=== PATIENT | male | born 1945 | race Caucasian/White ===

== ENCOUNTER 2017-05-10 13:22 | Inpatient (IN) ==
--- NOTE | 2017-05-10 16:37 | Diag Imaging Result Doc PS360 ---
EXAM: MRI BRAIN W W/O CONTRAST HISTORY: lung cancer TECHNIQUE: Axial, sagittal, and coronal images obtained in multiple sequences. These are followed by postcontrast axial and coronal images. COMPARISON: None. FINDINGS: No recent infarct. No microvascular ischemic changes. No mass or midline shift. No enhancing lesion on the post contrasted images. No hydrocephalus. No epidural or subdural fluid collection. No sinus opacification. Minimal mucosal thickening. IMPRESSION: No brain metastases identified. Electronically signed by Gómez Allen 05/10/2017 4:35 PM
--- NOTE | 2017-05-10 17:10 | Diag Imaging Result Doc PS360 ---
EXAM: ABDOMEN/PELVIS W/CONTRAST INDICATION: Evaluation of lung cancer TECHNIQUE: Dose reduction protocol was used. COMPARISON: No prior dedicated CT of the abdomen and pelvis is available for comparison. FINDINGS: The known mass suspicious for neoplasm in the left lung base seen on a CT of the chest performed earlier today is again noted. There is a tiny hypodensity in the anterior right hepatic lobe and one in the inferior left hepatic lobe that do not appear to enhance and probably represent small cysts but are too small to accurately characterize. There is a small hypodensity at the lower pole of the left kidney that probably represents a tiny cyst. There is bilateral perinephric fibrotic change. There is extensive sigmoid colonic diverticulosis but no evidence of diverticulitis. There are prostatic calcifications. Contrast is seen in the urinary bladder even on earlier phases due to the recent chest CT. The remainder of the solid viscera of the abdomen and pelvis and the remainder of the GI tract are essentially unremarkable. There are degenerative changes involving the spine. There is nothing to suggest bony metastatic disease locally. IMPRESSION: 1.A couple miniscule hepatic hypodensities that probably represent tiny cysts but are too small to characterize. 2.No definite sign of metastatic disease to the abdomen and pelvis, otherwise. 3.Other incidental/nonacute findings detailed above. Electronically signed by Federico Toscano 05/10/2017 5:07 PM
[2017-05-10] MEDS: DUONEB (A & A) INH PRN (17:54)
[2017-05-10 18:00] LABS: BASO% 0.1 % (0.0-0.8); HEMATOCRIT 33.2 % (42.0-52.0); HEMOGLOBIN 11.6 g/dL (14.0-18.0); IMM GRAN# 0.04 X1000 (0.0-0.04); IMM GRAN% 0.3 % (0.0-0.5); LYMPH# 0.26 X1000 (1.2-3.4); LYMPH% 1.7 % (20.5-51.1); MANUAL DIFF NEEDED? YES; MCH 33.2 PG (27-31); MCHC 34.9 g/dL (33-37); MCV 95.1 FL (81-99); MONO# 0.12 X1000 (0.11-0.59); MONO% 0.8 % (1.7-9.3); MPV 8.5 FL (7.4-10.4); NEUT% 97.1 % (42.2-75.2); PLT 372 X1000 (130-400); RBC 3.49 XMIL (4.7-6.1)
[2017-05-10 18:02] LABS: HEMOGLOBIN A1C 5.5 % (4.8-6.0)
[2017-05-10 18:04] LABS: LYMPHS 2 % (21-51); MONO 1 % (1-9)
[2017-05-10 18:05] LABS: ALLEN TEST YES; BE -1.9 mmoll (-3.0-3.0); BLOOD TYPE ARTERIAL; DRAW SITE R RADIAL; METHB 1.3 % (0.0-1.5); O2(CT) 16.2 mL/dL (15.0-23.0); PCO2(98.6) 35 mmHg (35-45); PO2(98.6) 75 mmHg (60-100); SAMPLE BLOOD; SAO2 97.6 % (95.0-100.0); THB 12.3 g/dL (11.5-17.4); pH(98.6) 7.41 (7.35-7.45)
[2017-05-10 18:07] LABS: MODALITY ROOM AIR
[2017-05-10 18:15] LABS: AGAP 18; ALBUMIN 3.9 g/dL (3.5-5.0); ALKALINE PHOSPHATASE 85 U/L (32-122); BUN 18 mg/dL (8-22); CALCIUM 9.4 mg/dL (8.8-10.2); CHLORIDE 93 mmol/L (98-107); COSMO 273; GOT 36 U/L (10-34); GPT 25 U/L (10-44); POTASSIUM 3.9 mmol/L (3.5-5.1); SODIUM 134 mmol/L (136-145); TCO2 23 mmol/L (25-35); TOTAL BILIRUBIN 0.39 mg/dL (0.20-1.00); TOTAL PROTEIN 8.4 g/dL (6.3-8.3)
[2017-05-10] MEDS: NS 1,000 ML IV SCH (18:45)
[2017-05-10] MEDS: SOLU-MEDROL IV SCH (18:46)
[2017-05-10] MEDS: LEVAQUIN 500 MG/D5W 500 MG/100 ML IVPB IV SCH (18:46)
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
[2017-05-11] MEDS: SOLU-MEDROL IV SCH ×3 (02:56→18:40)
--- NOTE | 2017-05-11 05:36 | EKG Report ---
Test Performed on : 05/10/2017 5:37:29 PM Test Reason : chest pain Blood Pressure : / mmHG Vent. Rate : 091 BPM Atrial Rate : 091 BPM P-R Int : 144 ms QRS Dur : 072 ms QT Int : 366 ms P-R-T Axes : 066 039 060 degrees QTc Int : 450 ms Sinus rhythm. with premature atrial complexes. Nonspecific T wave abnormality Abnormal ECG No previous ECGs available Confirmed by Alfredo Crump MD ([id number]) on 05/11/2017 1:07:02 PM
[2017-05-11] MEDS: NS 1,000 ML IV SCH ×3 (05:50→18:42)
[2017-05-11 06:42] LABS: INR 1.04; PROTIME 10.9 Seconds (9.2-11.7)
--- NOTE | 2017-05-11 08:43 | PROGRESS NOTE ---
DATE: 05/11/2017 SUBJECTIVE: The patient has a little bit of cough, shortness of breath. No complaints. EXAMINATION: Vital Signs: Vitals are stable. 6 feet, 184 pounds. HEENT: Within normal limits. Chest: Scattered wheezing. Heart: Sounds are regular. Abdomen: Belly is soft, nontender. Good bowel sounds. No masses palpable. Neurologic: No neurological deficits. INVESTIGATIONS: MRI of the brain is negative. CT of the abdomen and pelvis is negative. CEA level is 267. ASSESSMENT AND PLAN: 1. Left lower lobe mass, highly suspicious for malignancy. Waiting for a CT-guided biopsy and Dr. Pack is back up if there are any complications. Based on the biopsy, further recommendations will be followed. 2. Chronic obstructive pulmonary disease. Continue on bronchodilators, IV steroids, IV antibiotics. 3. Hypertension, on lisinopril. 4. Hyperlipidemia, on simvastatin. 5. We will reconcile his home medications. LEVEL OF DOCUMENTATION: Is 25 minutes. cc: Michael Roger MD
--- NOTE | 2017-05-11 10:10 | Diag Imaging Result Doc PS360 ---
EXAM: CHEST-2 VIEWS - 05/11/2017 HISTORY: POST BIOPSY TECHNIQUE: AP inspiratory expiratory chest 9:39-9:40 AM COMPARISON: No comparison chest radiographs are available FINDINGS: Exam performed immediately following the CT directed needle biopsy of the left lower lobe lesion. There is a tiny pneumothorax at the left apex. There is no pleural effusion identified. The lungs appear clear except for the known left lower lobe mass. Heart size is normal. IMPRESSION: Tiny left apical pneumothorax. Results were discussed with Dr. Roger by telephone at approximately 9:50 AM on 05/11/2017. Electronically signed by Jese Manuel 05/11/2017 10:08 AM
[2017-05-11] MEDS: BREO ELLIPTA 100/25 MCG INH INH SCH (10:12)
[2017-05-11] MEDS: SPIRIVA INH SCH (10:12)
--- NOTE | 2017-05-11 10:33 | Diag Imaging Result Doc PS360 ---
EXAM: CT GUIDED BIOPSY LUNG - 05/11/2017 HISTORY: lung mass TECHNIQUE: CT directed needle biopsy of left lung lesion COMPARISON: CT thorax of 05/10/2017 FINDINGS: The patient presented for CT directed needle biopsy of the left lower lobe lung lesion which was seen on the 05/10/2017 CT thorax. The procedure was explained to the patient. Potential benefit of diagnosis of the etiology of the left lower lobe lesion for guiding any needed treatment was explained. Potential complications of hemorrhage, infection, and pneumothorax (possibly necessitating chest tube insertion) were explained. Alternative method of surgical biopsy was mentioned. The patient's questions were answered. The patient consented to the procedure. The patient subsequently was placed on the CT table in the prone position. The left lower lobe lung lesion was identified by CT and the biopsy location was determined. The patient was prepped and draped in the usual fashion and the skin subcutaneous tissues at the biopsy site were infiltrated with local anesthetic. Using intermittent CT guidance, a 19-gauge trocar was inserted to the left lower lobe lesion via posterior approach. A 20-gauge Temno spring loaded biopsy needle was inserted through the trocar and the lesion was biopsied. A total of three biopsy samples obtained. The samples were sent to pathology for evaluation. There is a small pneumothorax visible by CT at the biopsy location. The patient had mild difficulty with holding his breath during the procedure but otherwise tolerated the procedure well. IMPRESSION: Apparently successful CT directed needle biopsy left lower lobe lung lesion. CT images showed a small pneumothorax at the biopsy location. Chest radiographs obtained immediately after the biopsy showed a tiny pneumothorax at the left apex. Electronically signed by Jese Manuel 05/11/2017 10:30 AM
--- NOTE | 2017-05-11 13:51 | Diag Imaging Result Doc PS360 ---
EXAM: CHEST-2 VIEWS - 05/11/2017 HISTORY: post biopsy TECHNIQUE: PA inspiratory expiratory chest 1:34-1:35 PM COMPARISON: Earlier exam of same day FINDINGS: There is a small (5-10%) pneumothorax on the left which is visible on the expiratory image but is difficult to visualize on the inspiratory image. This appears a bit larger compared to previous exam but there is greater detail on this exam compared to the prior exam. There are no other interval changes identified. There is no pleural effusion seen. IMPRESSION: Small left pneumothorax. Electronically signed by Jese Manuel 05/11/2017 1:49 PM
--- NOTE | 2017-05-11 17:48 | Diag Imaging Result Doc PS360 ---
EXAM: CHEST-2 VIEWS - 05/11/2017 HISTORY: post biopsy TECHNIQUE: PA inspiratory expiratory chest 5:29 PM COMPARISON: Earlier exam at 1:34-1:35 PM FINDINGS: There is a small left pneumothorax visible on the expiratory phase image. This appears slightly larger compared to the previous exam. This again is difficult to visualize on the inspiratory phase image. There are no other acute changes identified. IMPRESSION: Small left pneumothorax which appears slightly larger compared to the previous exam. Electronically signed by Jese Manuel 05/11/2017 5:46 PM
[2017-05-11] MEDS: LEVAQUIN 500 MG/D5W 500 MG/100 ML IVPB IV SCH (18:41)
[2017-05-12] MEDS: SOLU-MEDROL IV SCH ×2 (02:51→09:29)
[2017-05-12] MEDS: DUONEB (A & A) INH PRN (03:16)
[2017-05-12 08:10] VITALS: BP 133/67
[2017-05-12] MEDS ORDERED: ROBITUSSIN PO PRN (08:46)
[2017-05-12] MEDS ORDERED: ULTRACET 37.5MG/325MG PO PRN (08:46)
[2017-05-12] MEDS: BREO ELLIPTA 100/25 MCG INH INH SCH (10:42)
[2017-05-12] MEDS: SPIRIVA INH SCH (10:42)
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
--- NOTE | 2017-05-15 04:50 | DISCHARGE SUMMARY ---
ADMISSION DATE: 05/10/2017 DISCHARGE DATE: 05/12/2017 DISCHARGING DIAGNOSIS: Left lung mass, non-small cell lung cancer, presumed to be adenocarcinoma. Staging is in progress. SECONDARY DIAGNOSES: 1. Chronic obstructive pulmonary disease. 2. Chronic back pain. 3. Hemorrhoids. 4. Hyperlipidemia. 5. Hypertension. 6. Tobacco abuse. CONSULTS: Dr. Suero. PROCEDURES: CT-guided lung biopsy of the left lower lobe consistent with non-small cell lung cancer. BRIEF HISTORY: Please see the H and P that was done on 05/10/2017. In brief, he is a 72-year- old, pleasant, , white male admitted to the hospital from our office with cough and shortness of breath. No weight loss. No hemoptysis. The patient was found to have a left lower lobe mass. It appears to be 4-5 cm. HOSPITAL COURSE: He was treated for COPD exacerbation with IV antibiotics, IV steroids, and bronchodilators. CT lung biopsy was done. It showed non-small cell lung cancer. Staging was in progress. Patient was consulted by Dr. Suero. Postbiopsy complicated by a small pneumothorax which is not visible on the chest x-ray. Patient is going to be outpatient PET scan and further workup per Dr. Suero. LABORATORIES: CBC: White cell count 15, hematocrit 33, platelets 372,000. PT 10, INR 1.04. ABG on room air, pH is 7.41, pCO2 35, PO2 is 75, bicarb 23. SMA 7: Sodium 134, potassium 3.9, chloride 93, BUN 18, creatinine 1, glucose 145. A1c 5.5. Liver function tests were normal. CRP is high. CEA level 267. B12 and TSH are normal. RADIOLOGY PROCEDURES: 1. Brain MRI, no evidence of metastatic disease. 2. CT scan of the abdomen and pelvis, tiny cyst. No evidence of metastatic disease noted. DISCHARGE INSTRUCTIONS: 1. Quit smoking. 2. Continue home medicines through the [facility]. Lisinopril 40 mg daily, simvastatin 40 daily, Ultram as needed for pain. 3. Continue on bronchodilators which are Breo and Spiriva. 4. Outpatient PET scan as per Dr. Suero. cc: MD Mushtaq Diallo MD Dr. Walker
== END 2017-05-12 13:51 | disposition home or self-care (01) ==
LOC: DIRADM 13:22 → 3N 14:34
PROVIDERS: ADMIT Internal Medicine; ATTEND Internal Medicine

== ENCOUNTER 2017-07-06 05:10 | Inpatient (IN) ==
[2017-07-04 12:20] LABS: HEMATOCRIT 32.1 % (42.0-52.0); HEMOGLOBIN 10.8 g/dL (14.0-18.0); MCH 31.9 PG (27-31); MCHC 33.6 g/dL (33-37); MCV 94.7 FL (81-99); MPV 8.7 FL (7.4-10.4); RBC 3.39 XMIL (4.7-6.1)
[2017-07-04 12:58] LABS: AGAP 14; BUN 8 mg/dL (8-22); CALCIUM 9.8 mg/dL (8.8-10.2); CHLORIDE 94 mmol/L (98-107); COSMO 271; POTASSIUM 5.3 mmol/L (3.5-5.1); SODIUM 136 mmol/L (136-145); TCO2 28 mmol/L (25-35)
[2017-07-06] MEDS ORDERED: LR 1,000 ML ONE (05:30)
[2017-07-06] MEDS ORDERED: KEFZOL 1 GM/D5W 1 GM/50 ML IVPB ONE (05:31)
[2017-07-06] MEDS ORDERED: DUONEB (A & A) INH ONE (05:45)
[2017-07-06] MEDS ORDERED: SENSORCAINE 0.5%-EPI 1:200,000 ONE (06:26)
[2017-07-06] MEDS ORDERED: FENTANYL ONE (06:26)
[2017-07-06] MEDS ORDERED: DIPRIVAN 1% ONE (06:27)
[2017-07-06] MEDS ORDERED: NORCURON ONE (06:29)
[2017-07-06] MEDS ORDERED: SODIUM CHLORIDE 0.9% 10 ML ONE (06:29)
[2017-07-06] MEDS ORDERED: VERSED ONE ×2 (06:33→06:44)
[2017-07-06 06:41] LABS: AGAP 13; BUN 13 mg/dL (8-22); CALCIUM 9.8 mg/dL (8.8-10.2); CHLORIDE 99 mmol/L (98-107); COSMO 280; POTASSIUM 4.9 mmol/L (3.5-5.1); SODIUM 140 mmol/L (136-145); TCO2 28 mmol/L (25-35)
[2017-07-06] MEDS ORDERED: NAROPIN 0.5% ONE (06:51)
[2017-07-06] MEDS ORDERED: EXPAREL 1.3% ONE (06:51)
[2017-07-06 07:56] LABS: URINE MICRO REVIEW NEEDED? NO; URINE SOURCE CATH
[2017-07-06] MEDS ORDERED: ROBINUL ONE ×2 (08:00→08:32)
[2017-07-06 08:06] LABS: BILIRUBIN URINE NEGATIVE (NEGATIVE); BLOOD URINE SMALL (NEGATIVE); COLOR YELLOW; GLUCOSE URINE NEGATIVE (NEGATIVE); LEUKOCYTES URINE NEGATIVE (NEGATIVE); NITRITE URINE NEGATIVE (NEGATIVE); PROTEIN URINE TRACE mg/dL (NEGATIVE); SP GRAVITY URINE 1.018; TURBIDITY URINE CLEAR (CLEAR); UROBILINOGEN URINE NORMAL (NORMAL)
[2017-07-06 08:07] LABS: UR EPITHELIAL CELLS <10 /HPF (<10); URINE BACTERIA NEGATIVE /HPF; URINE RBC <10 /HPF (<10); URINE WBC <10 /HPF (<10)
[2017-07-06] MEDS ORDERED: ZOFRAN ONE (08:11)
[2017-07-06] MEDS ORDERED: OFIRMEV 1000 MG/ISOTONIC SOLN 1,000 MG/100 ML BOTTLE ONE (08:11)
[2017-07-06] MEDS ORDERED: NEOSTIGMINE ONE (08:32)
[2017-07-06] MEDS: MORPHINE ONE ×3 (09:22→11:48)
[2017-07-06 09:42] LABS: ALLEN TEST NO; BE -0.4 mmoll (-3.0-3.0); BLOOD TYPE ARTERIAL; METHB 1.2 % (0.0-1.5); O2(CT) 13.3 mL/dL (15.0-23.0); PCO2(98.6) 49 mmHg (35-45); PO2(98.6) 88 mmHg (60-100); SAMPLE BLOOD; SAO2 98.6 % (95.0-100.0); THB 9.8 g/dL (11.5-17.4); pH(98.6) 7.33 (7.35-7.45)
[2017-07-06 09:43] LABS: DRAW SITE OTHER; MODALITY CANNULA
[2017-07-06] MEDS ORDERED: NS 1,000 ML ONE (10:00)
[2017-07-06] MEDS ORDERED: MORPHINE ONE (10:04)
[2017-07-06] MEDS ORDERED: ZOFRAN IV PRN (10:42)
--- NOTE | 2017-07-06 11:06 | Diag Imaging Result Doc PS360 ---
EXAM: CHEST-PORTABLE HISTORY: post thoracotomy TECHNIQUE: AP portable at 1050 COMMENT: There are two chest tubes on the left. There is been left thoracotomy. There is no evidence of residual pneumothorax. There is some atelectasis over the costophrenic angle region. The right lung is less well expanded than on 05/11/2017 otherwise has been no significant change. IMPRESSION: Status post the left lower lobe lobectomy. Electronically signed by Natanael Jean 07/06/2017 11:04 AM
[2017-07-06 11:15] LABS: I-STAT BE -2 mmoll (-2-3); I-STAT GLUCOSE 109 mg/dL (70-105); I-STAT HCO3 23.1 mmoll (22.0-26.0); I-STAT HEMATOCRIT 21 % (38-51); I-STAT HEMOGLOBIN 7.1 g/dL (11.5-17.5); I-STAT IONIZED CALCIUM 1.05 mmoll (1.12-1.32); I-STAT K 3.2 mmoll (3.5-4.9); I-STAT PCO2 40.5 mmHg (35.0-45.0); I-STAT SO2 100 % (95-98); I-STAT SODIUM 137 mmoll (138-146); I-STAT TCO2 24 mmoll (23-27); I-STAT pH 7.363 (7.350-7.450)
[2017-07-06] MEDS: DILAUDID IV PRN ×4 (11:45→22:32)
[2017-07-06] MEDS: DUONEB (A & A) INH SCH ×4 (11:46→23:24)
[2017-07-06] MEDS: NS 1,000 ML IV SCH ×2 (11:48→21:15)
[2017-07-06 12:11] LABS: ALLEN TEST NO; BE -0.9 mmoll (-3.0-3.0); BLOOD TYPE ARTERIAL; DRAW SITE OTHER; METHB 1.7 % (0.0-1.5); O2(CT) 13.4 mL/dL (15.0-23.0); PO2(98.6) 103 mmHg (60-100); SAMPLE BLOOD; SAO2 98.8 % (95.0-100.0); THB 9.9 g/dL (11.5-17.4); pH(98.6) 7.31 (7.35-7.45)
[2017-07-06 12:13] LABS: MODALITY CANNULA; PCO2(98.6) 51 mmHg (35-45)
--- NOTE | 2017-07-06 12:35 | OPERATIVE NOTE ---
PROCEDURE DATE: 07/06/2017 PROCEDURES PERFORMED: 1. Bronchoscopy. 2. Left posterolateral thoracotomy. 3. Left lower lobectomy. SURGEON: Michael Pack MD WHEEL PRESSER: Rylie Taylor. PREOPERATIVE DIAGNOSES: 1. Adenocarcinoma of the left lower lobe. 2. Chronic obstructive pulmonary disease. POSTOPERATIVE DIAGNOSES: 1. Adenocarcinoma of the left lower lobe. 2. Chronic obstructive pulmonary disease. DESCRIPTION OF PROCEDURE: Satisfactory single-lumen general endotracheal anesthesia was achieved. The flexible bronchoscope was introduced through the oral endotracheal tube into the trachea. The lino was identified. We looked at the right mainstem. The upper lobe orifice, middle lobe orifice, and lower lobe orifice on the right all appeared normal, except the middle lobe appeared somewhat collapsed. No endobronchial lesions were seen. We then pulled the scope back into the trachea and passed it into the left mainstem. The orifice to the upper lobe and lower lobes appeared normal. No endobronchial lesions were seen. There really was not much mucus identified. We removed the flexible bronchoscope. The patient was then exchanged for a single-lumen to a double lumen tube and it was secured in position. We then turned the patient into the decubitus position with the left side up, and he was secured there. The left side was then prepped and draped in a sterile fashion. We marked the skin 2 fingerbreadths below the tip of the scapula and then incised the skin as the posterolateral thoracotomy incision. We then used electrocautery to achieve satisfactory hemostasis. We then divided the latissimus dorsi muscle and then the serratus anterior muscle and a portion the rhomboids posteriorly. We identified the 6th rib and then asked the nurse telephone lineman to clamp off the lumen to the left side. We then divided the intercostal muscles between the 6th and 7th ribs until we entered the pleural space. We opened the pleural space to the extent of the skin incision. We then dissected the soft tissue from below the 6th rib in order to preserve the intercostal nerves. We then gently placed a rib fire protection specialist and gently the ribs. We were right at the level of the fissure. There were some adhesions to the left upper lobe, which we carefully divided, thereby freeing up both the left upper and lower lobes. We divided the inferior pulmonary ligament. We then began dividing the fissure in the mid aspect and exposed the pulmonary artery as it entered the lower lobe. We identified the basilar artery. We identified the arteries to the superior dorsal segment. We carefully dissected them and then ligated them with 2-0 silks proximally x2, distally x1, and divided each 1 of them so that the arterial supply to the lower lobe was completely divided. We then incised the pleura posteriorly to the level of the major fissure and then I was able to pass a AQUILES-80 green linear stapler to complete the major fissure posterior to the arteries. The fissure anteriorly was complete, so we did not have to divide any tissue anterior. We then reflected the lung anteriorly to expose the inferior pulmonary vein. We dissected it. We surrounded it with a right angle. I then was able to pass a TA-30 vascular stapler around the inferior pulmonary vein and stapled it off proximally. We ligated it distally with a 2-0 silk and then divided the vein. This then left us with the bronchus to the lower lobe and the major fissure. We cleaned it off. We left the lymph nodes attached to the lower lobe and, after we had exposed the bronchus circumferentially, we then passed a TA-30 stapler green cartridge. We then clamped off that bronchus. We then inflated the left upper lobe and it inflated nicely. We did use Progel along the staple line of the fissure to help stop any air leak that was identified in the parenchyma. We then stapled off the lower lobe bronchus, divided it, and handed off the lower lobe. We tested the bronchial closure at 40 mmHg and there was no leak from the bronchial stump. We left the left upper lobe inflated. We then placed two #32 chest tubes, one anteriorly and one posteriorly. The posterior tube we cut an extra hole in at the 12 cm megha in order to help drain the inferior aspect of the chest cavity better. We secured these at the skin level with 0 silks. We then cleaned off the rib with the periosteum elevator at 3 [address] along the course of the 6th and the 7th ribs. We drilled holes in the rib and passed 2-0 Ti-Cron sutures through the rib. I then injected with ropivacaine and Exparel combination. We had a total of 50 mL. I injected below the 6th rib and below the 7th rib as well to help provide relief of pain along the course of the intercostal nerves. We then reapproximated the ribs with a rib reapproximator and tied the Ti-Cron stitches to hold the ribs together. We then used the rest of the Exparel in the subcutaneous tissue along the course of the muscle. Total use of the Exparel and ropivacaine combination was 50 mL. We then closed the serratus anterior muscle with #1 Polysorb. We closed the rhomboids with 1 Polysorb. We closed the latissimus dorsally with 1 Polysorb. We then closed the subcutaneous tissue with 0 Polysorb. The skin was reapproximated with jim. A sterile dressing was applied. He tolerated it well. Estimated blood loss was 125 mL. He was sent to the recovery room in satisfactory condition. cc: MD Wilda Neville MD
[2017-07-06] MEDS: CARDIZEM PO SCH ×2 (13:01→17:00)
[2017-07-06] MEDS: OFIRMEV 1000 MG/ISOTONIC SOLN 1,000 MG/100 ML BOTTLE IV SCH ×2 (13:01→20:24)
[2017-07-06] MEDS: ZOCOR PO SCH (20:24)
[2017-07-06] MEDS: PERIDEX MT SCH (20:25)
[2017-07-06] MEDS: ULTRAM PO PRN (22:31)
[2017-07-06] MEDS ORDERED: BLISTEX MEDICATED BERRY LIP BALM TOP PRN (22:37)
[2017-07-07] MEDS: OFIRMEV 1000 MG/ISOTONIC SOLN 1,000 MG/100 ML BOTTLE IV SCH ×4 (01:51→20:33)
[2017-07-07] MEDS: DILAUDID IV PRN ×3 (01:51→20:31)
[2017-07-07] MEDS: DUONEB (A & A) INH SCH ×5 (03:12→23:13)
[2017-07-07] MEDS ORDERED: NS 500 ML IV ONE (04:47)
[2017-07-07] MEDS: NS 1,000 ML IV SCH ×2 (05:26→06:32)
[2017-07-07 06:38] LABS: BASO% 0.1 % (0.0-0.8); HEMATOCRIT 32.8 % (42.0-52.0); HEMOGLOBIN 10.4 g/dL (14.0-18.0); LYMPH# 0.38 X1000 (1.2-3.4); MANUAL DIFF NEEDED? NO; MCH 32.6 PG (27-31); MCHC 31.7 g/dL (33-37); MCV 102.8 FL (81-99); MONO# 1.17 X1000 (0.11-0.59); MONO% 6.2 % (1.7-9.3); MPV 8.3 FL (7.4-10.4); NEUT% 91.7 % (42.2-75.2); PLT 386 X1000 (130-400); RBC 3.19 XMIL (4.7-6.1)
[2017-07-07 07:14] LABS: CALCIUM 8.2 mg/dL (8.8-10.2); POTASSIUM 4.7 mmol/L (3.5-5.1)
[2017-07-07] MEDS ORDERED: NS 1,000 ML IV SCH (08:30)
--- NOTE | 2017-07-07 08:54 | Diag Imaging Result Doc PS360 ---
EXAM: CHEST-PORTABLE - 07/07/2017 HISTORY: post thoracotomy TECHNIQUE: Portable chest 0840 COMPARISON: 07/06/2017 FINDINGS: There are postsurgical changes with two chest tubes on the left similar to the previous exam. There is increased atelectasis at the left base compared to previous exam. There is mild subsegmental atelectasis at the right base. There is no other consolidation, pleural effusion, or pneumothorax identified. There is stable cardiomegaly. There is apparent gaseous distention of stomach noted at the upper abdomen. IMPRESSION: Postsurgical changes on the left. Increased atelectasis at left base compared to prior. Apparent gaseous distention of stomach noted. Electronically signed by Jese Manuel 07/07/2017 8:52 AM
[2017-07-07] MEDS: CARDIZEM PO SCH ×3 (09:21→16:12)
[2017-07-07] MEDS: PRINIVIL PO SCH (09:21)
[2017-07-07] MEDS: PERIDEX MT SCH ×2 (09:21→20:33)
[2017-07-07] MEDS: ZOCOR PO SCH (20:33)
[2017-07-08] MEDS: OFIRMEV 1000 MG/ISOTONIC SOLN 1,000 MG/100 ML BOTTLE IV SCH ×4 (02:45→21:00)
[2017-07-08] MEDS: DUONEB (A & A) INH SCH ×7 (03:33→22:58)
[2017-07-08 04:25] LABS: ALLEN TEST YES; BE -1.2 mmoll (-3.0-3.0); BLOOD TYPE ARTERIAL; DRAW SITE R RADIAL; METHB 1.2 % (0.0-1.5); O2(CT) 13.5 mL/dL (15.0-23.0); PCO2(98.6) 49 mmHg (35-45); PO2(98.6) 74 mmHg (60-100); SAMPLE BLOOD; SAO2 97.5 % (95.0-100.0); THB 10.1 g/dL (11.5-17.4); pH(98.6) 7.32 (7.35-7.45)
[2017-07-08 04:26] LABS: MODALITY CANNULA
[2017-07-08] MEDS: DILAUDID IV PRN ×3 (05:58→18:13)
[2017-07-08 07:04] LABS: POTASSIUM 4.2 mmol/L (3.5-5.1)
[2017-07-08 07:10] LABS: BASO% 0.1 % (0.0-0.8); HEMATOCRIT 29.2 % (42.0-52.0); HEMOGLOBIN 9.8 g/dL (14.0-18.0); IMM GRAN# 0.05 X1000 (0.0-0.04); IMM GRAN% 0.3 % (0.0-0.5); LYMPH# 0.68 X1000 (1.2-3.4); LYMPH% 3.5 % (20.5-51.1); MANUAL DIFF NEEDED? NO; MCH 32.7 PG (27-31); MCHC 33.6 g/dL (33-37); MCV 97.3 FL (81-99); MONO# 1.25 X1000 (0.11-0.59); MONO% 6.5 % (1.7-9.3); NEUT% 89.6 % (42.2-75.2); PLT 422 X1000 (130-400)
[2017-07-08] MEDS ORDERED: LASIX ONE (08:10)
[2017-07-08] MEDS ORDERED: LASIX IV ONE (08:14)
[2017-07-08] MEDS ORDERED: DULCOLAX PR ONE (08:15)
[2017-07-08] MEDS ORDERED: BREO ELLIPTA 200/25 MCG INH INH ONE (08:48)
[2017-07-08] MEDS ORDERED: VENTOLIN HFA INH PRN (08:48)
[2017-07-08] MEDS ORDERED: MIRALAX PO ONE (08:52)
--- NOTE | 2017-07-08 09:08 | Diag Imaging Result Doc PS360 ---
CHEST-PORTABLE - 07/08/2017 INDICATION: post thoracotomy TECHNIQUE: COMPARISON: 07/07/2017 FINDINGS: Stable double left chest tubes. No pneumothorax. Stable severe cardiomegaly. There is worsening pulmonary vascular congestion. No overt infiltrates or edema. IMPRESSION: Worsening pulmonary vascular congestion. Otherwise no change from prior. Electronically signed by Suresh Quigley 07/08/2017 9:06 AM
--- NOTE | 2017-07-08 09:14 | Diag Imaging Result Doc PS360 ---
KUB ABDOMEN - 07/08/2017 INDICATION: distention TECHNIQUE: COMPARISON: Chest x-ray from 07/07/2017 FINDINGS: There is severe gaseous distention of the stomach that appears stable from prior. There is a relatively large amount of gas throughout the small and large bowels uniformly. No definite free air. IMPRESSION: Stomach is severely distended with gas. The reason is unclear. This may represent gastric ileus. Electronically signed by Suresh Quigley 07/08/2017 9:11 AM
[2017-07-08] MEDS: SPIRIVA INH SCH (09:18)
[2017-07-08] MEDS: SOLU-MEDROL IV SCH ×2 (09:47→16:10)
[2017-07-08] MEDS: PRINIVIL PO SCH (09:48)
[2017-07-08] MEDS: PERIDEX MT SCH ×2 (09:48→21:01)
[2017-07-08] MEDS: PROTONIX IV SCH (09:48)
[2017-07-08] MEDS: LEVAQUIN 500 MG/D5W 500 MG/100 ML IVPB IV SCH (09:48)
[2017-07-08] MEDS: SODIUM CHLORIDE 0.9% INJ SCH (09:48)
[2017-07-08] MEDS: CARDIZEM PO SCH ×3 (09:48→16:07)
[2017-07-08] MEDS: CLINIMIX E 4.25%-5% SOLUTION 1,000 ML IV SCH (12:35)
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
[2017-07-08] MEDS: ZOCOR PO SCH (21:00)
[2017-07-09] MEDS: SOLU-MEDROL IV SCH ×3 (01:30→21:07)
[2017-07-09] MEDS: OFIRMEV 1000 MG/ISOTONIC SOLN 1,000 MG/100 ML BOTTLE IV SCH ×2 (01:31→08:21)
[2017-07-09] MEDS: CLINIMIX E 4.25%-5% SOLUTION 1,000 ML IV SCH ×2 (01:31→15:07)
[2017-07-09] MEDS: DUONEB (A & A) INH SCH ×6 (03:18→23:11)
[2017-07-09] MEDS: DILAUDID IV PRN ×4 (04:12→21:10)
[2017-07-09 04:38] LABS: ALLEN TEST YES; BE 3.3 mmoll (-3.0-3.0); BLOOD TYPE ARTERIAL; DRAW SITE R RADIAL; O2(CT) 12.7 mL/dL (15.0-23.0); PCO2(98.6) 49 mmHg (35-45); PO2(98.6) 106 mmHg (60-100); SAMPLE BLOOD; SAO2 99.2 % (95.0-100.0); THB 9.2 g/dL (11.5-17.4); pH(98.6) 7.38 (7.35-7.45)
[2017-07-09 04:39] LABS: MODALITY CANNULA
[2017-07-09 06:30] LABS: HEMATOCRIT 28.9 % (42.0-52.0); HEMOGLOBIN 9.4 g/dL (14.0-18.0); IMM GRAN# 0.02 X1000 (0.0-0.04); IMM GRAN% 0.1 % (0.0-0.5); LYMPH# 0.28 X1000 (1.2-3.4); LYMPH% 1.6 % (20.5-51.1); MANUAL DIFF NEEDED? NO; MCH 31.5 PG (27-31); MCHC 32.5 g/dL (33-37); MONO% 2.9 % (1.7-9.3); MPV 8.9 FL (7.4-10.4); NEUT% 95.4 % (42.2-75.2); PLT 428 X1000 (130-400); RBC 2.98 XMIL (4.7-6.1)
[2017-07-09 06:40] LABS: INR 0.96; PROTIME 10.1 Seconds (9.2-11.7)
[2017-07-09 06:48] LABS: AGAP 13; ALBUMIN 3.3 g/dL (3.5-5.0); ALKALINE PHOSPHATASE 64 U/L (32-122); BUN 24 mg/dL (8-22); CALCIUM 8.5 mg/dL (8.8-10.2); CHLORIDE 93 mmol/L (98-107); COSMO 275; GOT 55 U/L (10-34); GPT 18 U/L (10-44); MAGNESIUM 1.9 mg/dL (1.5-2.7); POTASSIUM 4.4 mmol/L (3.5-5.1); SODIUM 134 mmol/L (136-145); TCO2 28 mmol/L (25-35); TOTAL BILIRUBIN 0.21 mg/dL (0.20-1.00); TOTAL PROTEIN 6.8 g/dL (6.3-8.3)
[2017-07-09] MEDS: BREO ELLIPTA 200/25 MCG INH INH SCH (08:02)
[2017-07-09] MEDS: SPIRIVA INH SCH (08:02)
--- NOTE | 2017-07-09 08:54 | Diag Imaging Result Doc PS360 ---
CHEST-PORTABLE - 07/09/2017 INDICATION: post thoracotomy TECHNIQUE: COMPARISON: 07/08/2017 FINDINGS: The uppermost left-sided chest tube has been removed. The other chest tube remains in stable position. No pneumothorax. There is a new nasogastric tube in good position. There is some plate like atelectasis in the right lung base but otherwise no infiltrates. Stable diffuse pulmonary vascular congestion. Stable mild cardiomegaly. IMPRESSION: New nasogastric tube. Increasing platelike atelectasis in the right lung base. No pneumothorax. Electronically signed by Suresh Quigley 07/09/2017 8:52 AM
[2017-07-09] MEDS: LEVAQUIN 500 MG/D5W 500 MG/100 ML IVPB IV SCH (09:05)
[2017-07-09] MEDS: PERIDEX MT SCH ×2 (09:05→21:08)
[2017-07-09] MEDS: PROTONIX IV SCH ×2 (09:05→21:08)
[2017-07-09] MEDS: SODIUM CHLORIDE 0.9% INJ SCH ×2 (09:05→21:08)
[2017-07-09] MEDS: CARDIZEM PO SCH ×3 (09:06→17:24)
[2017-07-09] MEDS: PRINIVIL PO SCH (09:06)
[2017-07-09] MEDS ORDERED: VASOTEC IV PRN (13:31)
--- NOTE | 2017-07-09 17:54 | PROGRESS NOTE ---
DATE: 07/09/2017 SUBJECTIVE: The patient is status post left lower lobe pneumonectomy for stage II lung cancer,and he has had COPD. He is feeling a little bit better, still short of breath, but feeling better than he did. Blood pressure is elevated and we will give him some IV enalapril on a p.r.n. basis for that. He still has an NG tube in at this point. OBJECTIVE: Vital Signs: Blood pressure 173/68. I just saw another blood pressure of 190/104, pulse on 109, respirations 18, temperature 98.2 degrees Fahrenheit. HEENT: Normocephalic. EOMS intact, PERRLA. Throat clear. Lungs: Scattered rales, decreased or dull in the left base where he has had his surgery. Heart: Regular rate and rhythm, without murmurs, gallops, or friction rubs. There is a sinus tachycardia. Abdomen: Soft. Active bowel sounds. There is some question about a gastric ileus. He is a little distended. Neurological: Intact grossly. ASSESSMENT: 1. Lung cancer. 2. Status post a left lower lobe pneumonectomy. 3. Hypertension. 4. Possible gastric ileus. PLAN: Continue support. cc: MD Michael Vincent Jr, MD
[2017-07-09] MEDS ORDERED: LASIX IV ONE (20:00)
[2017-07-09] MEDS: ZOCOR PO SCH (21:15)
[2017-07-10] MEDS: DUONEB (A & A) INH SCH ×6 (03:22→22:42)
[2017-07-10] MEDS: DILAUDID IV PRN ×2 (03:30→20:13)
[2017-07-10] MEDS: CLINIMIX E 4.25%-5% SOLUTION 1,000 ML IV SCH ×2 (03:30→17:15)
[2017-07-10 04:38] LABS: HEMATOCRIT 28.9 % (42.0-52.0); HEMOGLOBIN 9.4 g/dL (14.0-18.0); IMM GRAN# 0.04 X1000 (0.0-0.04); IMM GRAN% 0.2 % (0.0-0.5); LYMPH% 1.8 % (20.5-51.1); MANUAL DIFF NEEDED? YES; MCH 31.5 PG (27-31); MCHC 32.5 g/dL (33-37); MONO% 4.7 % (1.7-9.3); MPV 8.5 FL (7.4-10.4); NEUT% 93.3 % (42.2-75.2); PLT 417 X1000 (130-400); RBC 2.98 XMIL (4.7-6.1)
[2017-07-10 04:43] LABS: INR 0.96
[2017-07-10 05:00] LABS: AGAP 11; ALBUMIN 3.4 g/dL (3.5-5.0); ALKALINE PHOSPHATASE 56 U/L (32-122); BUN 25 mg/dL (8-22); CALCIUM 9.7 mg/dL (8.8-10.2); CHLORIDE 93 mmol/L (98-107); COSMO 275; GOT 51 U/L (10-34); GPT 21 U/L (10-44); MAGNESIUM 1.9 mg/dL (1.5-2.7); POTASSIUM 4.5 mmol/L (3.5-5.1); SODIUM 134 mmol/L (136-145); TCO2 30 mmol/L (25-35); TOTAL BILIRUBIN 0.21 mg/dL (0.20-1.00); TOTAL PROTEIN 6.7 g/dL (6.3-8.3)
--- NOTE | 2017-07-10 07:08 | Diag Imaging Result Doc PS360 ---
EXAM: CHEST-PORTABLE HISTORY: abnormal exam TECHNIQUE: AP portable at 0500 COMMENT: There continues to be ill-defined opacity in both lung bases. Left hemidiaphragm remains elevated. Overall, compared to 07/09/2017 there has been no significant change. IMPRESSION: Atelectasis plus minus pneumonia, stable. Electronically signed by Natanael Jean 07/10/2017 7:06 AM
--- NOTE | 2017-07-10 07:09 | Diag Imaging Result Doc PS360 ---
EXAM: KUB ABDOMEN HISTORY: ileus TECHNIQUE: Portable KUB at 0500 COMMENT: There is gas throughout the colon. The stomach and small bowel are not distended. There is some motion artifact. Compared to 07/08/2017 the gas distending the stomach and small bowel have diminished. IMPRESSION: Possibility of mild residual ileus cannot be excluded. No evidence of obstruction. Electronically signed by Natanael Jean 07/10/2017 7:07 AM
[2017-07-10 07:18] LABS: BANDS 2 % (0-1); LYMPHS 2 % (21-51); MONO 2 % (1-9)
[2017-07-10] MEDS: SPIRIVA INH SCH (08:06)
[2017-07-10] MEDS: BREO ELLIPTA 200/25 MCG INH INH SCH (08:06)
[2017-07-10] MEDS: PERIDEX MT SCH ×2 (08:51→20:03)
[2017-07-10] MEDS: PRINIVIL PO SCH (08:51)
[2017-07-10] MEDS: CARDIZEM PO SCH ×2 (08:51→12:58)
[2017-07-10] MEDS: LEVAQUIN 500 MG/D5W 500 MG/100 ML IVPB IV SCH (08:51)
[2017-07-10] MEDS: PROTONIX IV SCH ×2 (08:51→20:04)
[2017-07-10] MEDS: SOLU-MEDROL IV SCH ×2 (08:51→20:04)
[2017-07-10] MEDS: SODIUM CHLORIDE 0.9% INJ SCH (08:51)
[2017-07-10] MEDS: LASIX IV SCH ×2 (09:44→20:04)
[2017-07-10] MEDS: ULTRAM PO PRN ×2 (13:00→20:13)
[2017-07-10] MEDS: CARDIZEM 100 MG/NS 100 MG/100 ML IVPB IV SCH ×2 (14:14→18:19)
--- NOTE | 2017-07-10 16:06 | EKG Report ---
Test Performed on : 07/10/2017 1:58:46 PM Test Reason : CCU 12. Not ordered in [place] Blood Pressure : / mmHG Vent. Rate : 158 BPM Atrial Rate : 133 BPM P-R Int : 000 ms QRS Dur : 070 ms QT Int : 294 ms P-R-T Axes : 000 195 003 degrees QTc Int : 476 ms Atrial fibrillation. with rapid ventricular response. Right superior axis deviation Inferior infarct , age undetermined ST \T\ T wave abnormality, consider anterolateral ischemia Abnormal ECG When compared with ECG of May 10, 2017- Atrial fibrillation. has replaced Sinus rhythm. ST and T wave abnormalities in the anterolateral leads are new Criteria for inferior infarct is new. Confirmed by Niall Ocasio MD ([id number]) on 07/10/2017 8:25:37 PM
[2017-07-10] MEDS ORDERED: LANOXIN IV ONE (18:02)
--- NOTE | 2017-07-10 18:31 | PROGRESS NOTE ---
DATE: 07/10/2017 SUBJECTIVE: Interval history was reviewed. The patient developed ileus, right lower lobe pneumonia postoperatively. Chest tubes were removed. The patient is feeling better. I have seen him twice today. REVIEW OF SYSTEMS: None reported. PHYSICAL EXAMINATION: Vital Signs: Afebrile. tachycardic. Vitals are stable. HEENT Examination: Within normal limits. Chest: Decreased breath sounds in the right base. Heart: Sounds are regular. Abdomen: Belly is soft, less distended and passing flatus. Extremities: No peripheral edema or cyanosis. Neurologic: No obvious neurological deficits. INVESTIGATIONS: CBC: White cell count 16, hematocrit 28.9, platelets 417,000, PT 10, INR 0.96. SMA 7, sodium 134, potassium 4.5, chloride 93, BUN 25, creatinine 0.9, glucose 136, magnesium 1.9. LFTs were normal. ASSESSMENT AND PLAN: 1. Ileus resolving. Discontinue NG tube. We will start with clear liquids. 2. Status post left lower lobe lobectomy, 6.6 cm mass, margins were negative, negative lymph nodes. 3. Right lower lobe atelectasis, pneumonia. Continue IV antibiotics and incentive spirometry. Out of bed. On IV Levaquin. 4. Atrial fibrillation. Change Cardizem to IV Cardizem drip. We will check thyroid function tests and rule out NV with serial cardiac enzymes. 5. Nutrition through IV PPN. 6. DVT prophylaxis with subcutaneous Lovenox and GI prophylaxis with IV Protonix. LEVEL OF DOCUMENTATION: 35 minutes. cc: MD Michael Diallo MD MTDD
[2017-07-10] MEDS: ZOCOR PO SCH (20:05)
[2017-07-11] MEDS: CARDIZEM 100 MG/NS 100 MG/100 ML IVPB IV SCH (01:06)
[2017-07-11] MEDS: DILAUDID IV PRN ×3 (01:10→21:21)
[2017-07-11] MEDS: DUONEB (A & A) INH SCH ×5 (04:04→19:41)
[2017-07-11 04:44] LABS: ALLEN TEST YES; BE 13.5 mmoll (-3.0-3.0); BLOOD TYPE ARTERIAL; DRAW SITE R RADIAL; METHB 0.7 % (0.0-1.5); O2(CT) 12.8 mL/dL (15.0-23.0); PO2(98.6) 63 mmHg (60-100); SAMPLE BLOOD; SAO2 95.9 % (95.0-100.0); THB 9.7 g/dL (11.5-17.4); pH(98.6) 7.46 (7.35-7.45)
[2017-07-11 04:45] LABS: MODALITY CANNULA; PCO2(98.6) 55 mmHg (35-45)
[2017-07-11 05:45] LABS: INR 0.96
[2017-07-11 06:01] LABS: EOS# 0.02 X1000 (0.0-0.7); EOS% 0.2 % (0.0-10.0); HEMATOCRIT 27.2 % (42.0-52.0); HEMOGLOBIN 9.1 g/dL (14.0-18.0); IMM GRAN# 0.02 X1000 (0.0-0.04); IMM GRAN% 0.2 % (0.0-0.5); LYMPH# 0.35 X1000 (1.2-3.4); MANUAL DIFF NEEDED? YES; MCHC 33.5 g/dL (33-37); MCV 95.8 FL (81-99); MONO# 0.77 X1000 (0.11-0.59); MONO% 6.7 % (1.7-9.3); MPV 8.5 FL (7.4-10.4); NEUT% 89.9 % (42.2-75.2); PLT 410 X1000 (130-400); RBC 2.84 XMIL (4.7-6.1)
[2017-07-11 06:03] LABS: AGAP 10; BUN 27 mg/dL (8-22); CALCIUM 9.4 mg/dL (8.8-10.2); CHLORIDE 91 mmol/L (98-107); COSMO 274; MAGNESIUM 1.9 mg/dL (1.5-2.7); POTASSIUM 4.5 mmol/L (3.5-5.1); SODIUM 133 mmol/L (136-145); TCO2 32 mmol/L (25-35)
[2017-07-11 06:18] LABS: FREE T4 1.3 ng/dL (0.93-1.70)
[2017-07-11 06:28] LABS: CK INDEX 1.2 (0.0-2.5); CK-MB 5.41 ng/mL (0.0-5.0)
[2017-07-11] MEDS: CLINIMIX E 4.25%-5% SOLUTION 1,000 ML IV SCH ×2 (06:38→20:19)
[2017-07-11 06:57] LABS: LYMPHS 1 % (21-51); MONO 1 % (1-9)
--- NOTE | 2017-07-11 07:42 | Diag Imaging Result Doc PS360 ---
EXAM: CHEST-PORTABLE HISTORY: abnormal exam TECHNIQUE: AP portable at 0500 COMMENT: There has been some slight improvement in the basilar opacities particularly on the right compared to 07/10/2017. There is still soft tissue emphysema on the left which is actually somewhat increased towards the axilla in comparison with the previous study. This may indicate a persistent air leak. There is no definite evidence of pneumothorax however. The NG tube has been removed. IMPRESSION: Improved bibasilar atelectasis versus pneumonia. Persistent left soft tissue emphysema. Electronically signed by Natanael Jean 07/11/2017 7:40 AM
[2017-07-11] MEDS: SPIRIVA INH SCH (08:03)
[2017-07-11] MEDS: BREO ELLIPTA 200/25 MCG INH INH SCH (08:03)
[2017-07-11] MEDS: PROTONIX IV SCH ×2 (08:35→20:19)
[2017-07-11] MEDS: SOLU-MEDROL IV SCH ×2 (08:35→20:19)
[2017-07-11] MEDS: PERIDEX MT SCH ×2 (08:35→20:20)
[2017-07-11] MEDS: SODIUM CHLORIDE 0.9% INJ SCH (08:35)
[2017-07-11] MEDS: CARDIZEM PO SCH ×2 (08:36→16:59)
[2017-07-11] MEDS: PRINIVIL PO SCH (08:36)
[2017-07-11] MEDS: LEVAQUIN 500 MG/D5W 500 MG/100 ML IVPB IV SCH (08:36)
[2017-07-11] MEDS ORDERED: LANOXIN IV SCH (09:00)
[2017-07-11] MEDS: ULTRAM PO PRN (09:41)
[2017-07-11] MEDS ORDERED: LASIX IV ONE (17:59)
--- NOTE | 2017-07-11 18:25 | PROGRESS NOTE ---
DATE: 07/11/2017 SUBJECTIVE: Patient is still in ICU, remains in sinus, no shortness of breath, history of flatus. OBJECTIVE: Vital Signs: Afebrile, vital signs are stable, 5 L nasal cannula 94%. In and out +690. Chest: Scattered wheezing. Abdomen: Belly is soft, nontender, good bowel sounds. Heart: Distant heart sounds. Extremities: No peripheral edema or cyanosis. Neurologic: No obvious neurological deficits. INVESTIGATIONS: CBC: White cell count 11, hematocrit 27, platelets 410,000. PT/INR is normal. ABG: pH is 7.46, pCO2 55, PO2 63 on 40%. SMA 7 is normal. Cardiac enzymes are negative. ProBNP 620. Thyroid function tests were normal. Chest X-ray: Slightly improving atelectasis in the right base. ASSESSMENT AND PLAN: 1. Postop day 4 status post left lobectomy, right lower lobe atelectasis and pneumonia. Off chest tube. Continue incentive spirometry, bronchodilators, IV antibiotics, low dose steroids. 2. Ileus resolving off NG tube. Advance diet as tolerated. 3. Discontinue Chin catheter. 4. Continue on IV PPN. 5. Paroxysmal atrial fibrillation. DC the Cardizem drip, change to p.o. Cardizem. 6. Reconcile home medications. LEVEL OF DOCUMENTATION: 25 minutes. cc: MD Michael Diallo MD
[2017-07-11] MEDS: NORCO-10 PO PRN (19:21)
[2017-07-11] MEDS: ZOCOR PO SCH (20:19)
[2017-07-12] MEDS: DUONEB (A & A) INH SCH ×7 (00:41→23:10)
[2017-07-12] MEDS: CARDIZEM PO SCH ×3 (00:48→16:07)
[2017-07-12] MEDS: DILAUDID IV PRN ×4 (00:51→18:10)
[2017-07-12 06:18] LABS: INR 0.97; PROTIME 10.2 Seconds (9.2-11.7)
[2017-07-12 06:24] LABS: BASO% 0.1 % (0.0-0.8); HEMATOCRIT 30.5 % (42.0-52.0); IMM GRAN# 0.14 X1000 (0.0-0.04); IMM GRAN% 1.1 % (0.0-0.5); LYMPH# 0.41 X1000 (1.2-3.4); LYMPH% 3.2 % (20.5-51.1); MANUAL DIFF NEEDED? YES; MCH 31.3 PG (27-31); MCHC 32.8 g/dL (33-37); MCV 95.6 FL (81-99); MONO% 8.7 % (1.7-9.3); MPV 8.6 FL (7.4-10.4); NEUT% 86.9 % (42.2-75.2); PLT 432 X1000 (130-400); RBC 3.19 XMIL (4.7-6.1)
[2017-07-12 06:53] LABS: AGAP 9; ALBUMIN 3.8 g/dL (3.5-5.0); ALKALINE PHOSPHATASE 52 U/L (32-122); BUN 28 mg/dL (8-22); CALCIUM 9.2 mg/dL (8.8-10.2); CHLORIDE 89 mmol/L (98-107); COSMO 278; GOT 40 U/L (10-34); GPT 25 U/L (10-44); MAGNESIUM 2.1 mg/dL (1.5-2.7); POTASSIUM 4.7 mmol/L (3.5-5.1); SODIUM 135 mmol/L (136-145); TCO2 37 mmol/L (25-35); TOTAL BILIRUBIN 0.27 mg/dL (0.20-1.00); TOTAL PROTEIN 7.2 g/dL (6.3-8.3)
[2017-07-12 07:05] LABS: BANDS 2 % (0-1); LYMPHS 8 % (21-51); MONO 12 % (1-9)
--- NOTE | 2017-07-12 07:31 | Diag Imaging Result Doc PS360 ---
CHEST-PORTABLE - 07/12/2017 INDICATION: abnormal exam TECHNIQUE: COMPARISON: 07/11/2017 FINDINGS: Stable volume loss of the left lung with infiltrate at the bases. Stable patchy alveolar infiltrate at the right lung base as well. Heart size is normal. Pulmonary vascularity is normal. No pneumothorax. There is continued decrease in soft tissue gas at the inferior left lateral chest wall. IMPRESSION: No complication. Electronically signed by Suresh Quigley 07/12/2017 7:29 AM
[2017-07-12] MEDS: SPIRIVA INH SCH (07:36)
[2017-07-12] MEDS: BREO ELLIPTA 200/25 MCG INH INH SCH (07:36)
[2017-07-12] MEDS: SOLU-MEDROL IV SCH ×2 (09:02→22:29)
[2017-07-12] MEDS: SODIUM CHLORIDE 0.9% INJ SCH ×2 (09:02→22:29)
[2017-07-12] MEDS: PROTONIX IV SCH ×2 (09:02→22:29)
[2017-07-12] MEDS: PERIDEX MT SCH ×2 (09:02→22:35)
[2017-07-12] MEDS: LEVAQUIN 500 MG/D5W 500 MG/100 ML IVPB IV SCH (09:03)
[2017-07-12] MEDS: CLINIMIX E 4.25%-5% SOLUTION 1,000 ML IV SCH (09:03)
[2017-07-12] MEDS: PRINIVIL PO SCH (09:03)
[2017-07-12] MEDS: NORCO-10 PO PRN ×2 (10:22→16:03)
[2017-07-12] MEDS: LOVENOX SUBQ SCH (13:15)
[2017-07-12] MEDS: ZOCOR PO SCH (22:29)
[2017-07-13] MEDS: CLINIMIX E 4.25%-5% SOLUTION 1,000 ML IV SCH ×2 (00:20→11:49)
[2017-07-13] MEDS: NORCO-10 PO PRN ×2 (00:47→06:52)
[2017-07-13] MEDS: CARDIZEM PO SCH ×3 (01:03→18:54)
--- NOTE | 2017-07-13 03:17 | PROGRESS NOTE ---
DATE: 07/12/2017 SUBJECTIVE: Patient was seen in the ICU. He is doing much better. REVIEW OF SYSTEMS: No shortness of breath. No palpitations. History of flatus passing and Chin catheter was discontinued. Chest tubes were removed. Tolerating the diet very well. PHYSICAL EXAMINATION: Vital Signs: He is afebrile. Vitals are stable. Inputs and outputs positive 225. HEENT Examination: Within normal limits. Chest: Decreased wheezing. Abdomen: Belly is soft, nontender. Good bowel sounds. Neurologic: No neurological deficits. INVESTIGATIONS: CBC: White cell count 12.6, hematocrit 30, platelets 432,000. PT/INR is normal. SMA 7 is normal. LFTs were normal. ASSESSMENT AND PLAN: 1. Status post left lower lobe lobectomy. Pathology findings were discussed. 2. Ileus, resolving. Advance the diet. 3. Paroxysmal atrial fibrillation, in sinus. Continue on the Cardizem. 4. Protein calorie malnutrition. Intravenous peripheral parenteral nutrition at 75 mL per hour. 5. Deep venous thrombosis prophylaxis with Lovenox. 6. Right lower lobe pneumonia, atelectasis. Continue on Levaquin, incentive spirometry, intravenous steroids. 7. Gastrointestinal prophylaxis with intravenous Protonix. 8. Out of the bed with physical therapy. Transfer to the regular floor. Hopefully will go home this weekend. LEVEL OF DOCUMENTATION: 15 minutes. cc: MD Michael Diallo MD
[2017-07-13] MEDS: DUONEB (A & A) INH SCH ×6 (03:36→23:16)
[2017-07-13 06:15] LABS: INR 0.96
[2017-07-13] MEDS: BREO ELLIPTA 200/25 MCG INH INH SCH (07:44)
[2017-07-13] MEDS: SPIRIVA INH SCH (07:52)
[2017-07-13] MEDS: PRINIVIL PO SCH (09:22)
[2017-07-13] MEDS: SOLU-MEDROL IV SCH ×2 (09:23→21:46)
[2017-07-13] MEDS: LEVAQUIN 500 MG/D5W 500 MG/100 ML IVPB IV SCH (09:24)
[2017-07-13] MEDS: PERIDEX MT SCH ×2 (09:33→21:46)
[2017-07-13] MEDS: PROTONIX IV SCH ×2 (09:33→21:46)
[2017-07-13] MEDS: SODIUM CHLORIDE 0.9% INJ SCH ×2 (09:34→21:46)
[2017-07-13] MEDS: LOVENOX SUBQ SCH (11:49)
[2017-07-13] MEDS ORDERED: CLINIMIX E 4.25%-5% SOLUTION 1,000 ML IV SCH (12:57)
[2017-07-13] MEDS ORDERED: LASIX IV ONE (18:46)
[2017-07-13] MEDS: ZOCOR PO SCH (21:46)
--- NOTE | 2017-07-13 22:15 | PROGRESS NOTE ---
DATE: 07/13/2017 SUBJECTIVE: The patient is out of ICU. He is a little bit short of breath and he is extremely weak. He is afraid of going home soon. His is discussing possible rehab versus home health. REVIEW OF SYSTEMS: None reported. PHYSICAL EXAMINATION: Vital Signs: Stable. HEENT: Within normal limits. Chest: Bilateral air entry. Heart: Sounds are regular. Abdomen: Belly is soft, nontender. Good bowel sounds. Extremities: No peripheral edema, cyanosis. Neurologic: No neurological deficits. PT/INR is normal. ASSESSMENT AND PLAN: 1. Status post left lower lobectomy complicated by paroxysmal atrial fibrillation, atelectasis and pneumonia in the right lower lobe. Ileus resolving. Plan of care: Out of the bed with physical therapy. Continue present medical therapy. 2. Disposition. We will discuss with the family and Dr. Pack. Possible home health care or rehab placement. LEVEL OF DOCUMENTATION: 15 minutes. cc: MD Michael Diallo MD
[2017-07-14] MEDS: NORCO-10 PO PRN ×2 (00:02→13:57)
[2017-07-14] MEDS: CARDIZEM PO SCH ×3 (00:02→11:11)
[2017-07-14] MEDS: DUONEB (A & A) INH SCH ×3 (03:28→11:32)
[2017-07-14 06:05] LABS: INR 0.96
[2017-07-14 06:06] LABS: HEMATOCRIT 31.2 % (42.0-52.0); HEMOGLOBIN 10.3 g/dL (14.0-18.0); MCH 32.3 PG (27-31); MCV 97.8 FL (81-99); MPV 8.7 FL (7.4-10.4); RBC 3.19 XMIL (4.7-6.1)
[2017-07-14 06:11] LABS: AGAP 10; ALBUMIN 3.9 g/dL (3.5-5.0); ALKALINE PHOSPHATASE 55 U/L (32-122); BUN 31 mg/dL (8-22); CALCIUM 9.8 mg/dL (8.8-10.2); CHLORIDE 88 mmol/L (98-107); COSMO 277; GOT 31 U/L (10-34); GPT 29 U/L (10-44); MAGNESIUM 2.1 mg/dL (1.5-2.7); POTASSIUM 4.9 mmol/L (3.5-5.1); SODIUM 133 mmol/L (136-145); TCO2 35 mmol/L (25-35); TOTAL BILIRUBIN 0.28 mg/dL (0.20-1.00)
[2017-07-14] MEDS: SPIRIVA INH SCH (07:31)
[2017-07-14] MEDS: BREO ELLIPTA 200/25 MCG INH INH SCH (07:31)
[2017-07-14] MEDS: SODIUM CHLORIDE 0.9% INJ SCH (08:53)
[2017-07-14] MEDS: PROTONIX IV SCH (08:53)
[2017-07-14] MEDS: SOLU-MEDROL IV SCH (08:55)
[2017-07-14] MEDS: PERIDEX MT SCH (09:01)
[2017-07-14] MEDS: LEVAQUIN 500 MG/D5W 500 MG/100 ML IVPB IV SCH (09:01)
[2017-07-14] MEDS: PRINIVIL PO SCH (09:02)
--- NOTE | 2017-07-14 11:07 | Diag Imaging Result Doc PS360 ---
EXAM: CHEST-2 VIEWS HISTORY: abnormal exam TECHNIQUE: COMPARISON: 07/12/2017 FINDINGS: There are left-sided skin jim. Heart is not enlarged. The vessels are not distended. There is a small left pleural effusion with basilar atelectasis. There has been partial clearing in the lung bases compared to prior exam. The upper to mid lungs remain clear. Likely minimal fluid in the right fissure. IMPRESSION: Slight interval improvement Electronically signed by Gómez Allen 07/14/2017 11:05 AM
[2017-07-14] MEDS: LOVENOX SUBQ SCH (11:11)
[2017-07-14 11:46] VITALS: BP 141/69
--- NOTE | 2017-07-14 18:10 | PROGRESS NOTE ---
DATE: 07/14/2017 SUBJECTIVE: Patient is feeling a little better. The patient's is anxious, is feeble, wants some outpatient home health care. He is also hypoxic, needs home oxygen. REVIEW OF SYSTEMS: None reported. PHYSICAL EXAMINATION: Afebrile. Vitals are stable. On 3 L nasal cannula 94%.HEENT Exam: Within normal limits. Chest: Decreased breath sounds left base. Heart: Sounds are regular. Abdomen: Belly is soft, nontender. Good bowel sounds. Extremities: And no peripheral edema or cyanosis. Neurologic: No obvious neurological deficits. INVESTIGATIONS: Chest x-ray is improving. CBC: White cell count 18, hematocrit 31, platelets 493,000, INR is normal. PO2 63 on 40%. SMA 7 is normal. LFTs were normal. ASSESSMENT AND PLAN: 1. Status post left lobectomy. Stable. 2. Chronic obstructive pulmonary disease. Dependent on oxygen. Outpatient oxygen with [facility]. 3. We will arrange outpatient [facility]. Discussed with the social media analyst. 4. Paroxysmal atrial fibrillation. Currently in sinus. The patient is going home on bronchodilators, oxygen, Spiriva and Breo, and Cardizem for paroxysmal atrial fibrillation, hyperlipidemia on Zocor, hypertension on lisinopril, and will follow up in the office as an outpatient. LEVEL OF DOCUMENTATION: 25 minutes. cc: MD Michael Diallo MD
--- NOTE | 2017-07-18 08:20 | DISCHARGE SUMMARY ---
ADMISSION DATE: 07/06/2017 DISCHARGE DATE: 07/14/2017 PRIMARY DISCHARGE DIAGNOSIS: Adenocarcinoma of the left lower lobe. OTHER DIAGNOSES: 1. COPD. 2. Basilar atelectasis postop. 3. Hypertension. PRIMARY PROCEDURES: A left thoracotomy and left lower lobectomy done on 07/06/2017. HOSPITAL COURSE: Mr. Adamson was admitted on 07/06/2017 and underwent the indicated procedure on 07/06/2017. Because of his COPD, he was placed in the unit. We started him on clear liquids on the first postoperative day. We diuresed him on the second postoperative day and removed his anterior chest tube. Dr. Roger and Dr. Kelley were consulted. Dr. Roger is his primary care physician. Dr. Kelley because of his pulmonary disease. We tried to maintain equal intakes and outputs. We removed his posterior chest tube on postoperative day 3. He was given some IV antibiotics by Dr. Roger for possible lung disease and pneumonia. We advanced his diet on the 5th postoperative day and transferred him out of the unit on the 5th postoperative day. By 07/14/2017, he was the eating. His wound was fine. He had a chest x-ray that was satisfactory. He was afebrile, and it was felt he could be discharged home. He will return to the office next week for evaluation. His O2 saturation was satisfactory on room air. So, we did not have to arrange for any home oxygen. We will ask for home health to assist him in home with his activity and wound care. cc: MD Wilda Neville MD
== END 2017-07-14 14:39 | disposition home health service (06) ==
LOC: SURHOLD 05:10 → ICU 11:37 → 4N 07-12 11:06
PROVIDERS: ADMIT Surgery; ATTEND Surgery